=== PATIENT | female | born 1985 | race Asian ===

== ENCOUNTER 2018-05-05 05:27 | Inpatient (IN) | payer OTHER ==
[2018-05-05] VITALS (20 sets, daily range): BP systolic 107–144; BP diastolic 59–83; PULSE 68–86; TEMP 97.9–98.3
[~2018-05-05] VITALS: Ht 167.6 cm; Wt 82.7 kg
[~2018-05-05 05:27] MED LIST: MOTRIN 600600 MG/TAB PO; PERCOCET 325 MG1 TA2 PO; PRENATAL
[2018-05-05 06:12] LABS: BASO % 0.3 % (0.0-2.0); EOS # 0.1 (0.0-0.7); EOS % 0.7 % (0-4.0); GRAN # 4.5 (1.4-6.5); GRAN % 62.3 % (42.2-75.2); LYMPH % 28.3 % (20.0-51.0); MEAN CELL VOLUME 78 fl (80.0-100.0); MEAN CORPUSCULAR HGB CONC 31 g/dl (33.0-37.0); MEAN PLATELET VOLUME 11.6 fl (7.4-10.4); MONO # 0.6 (0.1-0.6); MONO % 7.8 % (1.7-9.3); PLATELET COUNT 244 K/mm3 (130-400); RED BLOOD COUNT 4.08 M/mm3 (4.10-5.30)
[2018-05-05 06:13] LABS: HEMATOCRIT 31.9 % (37.0-47.0); HEMOGLOBIN 9.9 g/dl (12.5-16.0); MEAN CORPUSCULAR HEMOGLOBIN 24 pg (27.0-31.0)
[2018-05-05] MEDS ORDERED: MOTRIN 600600 MG/TAB PO (14:19)
[2018-05-06 04:35] VITALS: BP 117/61; PULSE 88
[2018-05-06 07:00] VITALS: BP 115/70; PULSE 86; TEMP 98.2
[2018-05-06 08:06] LABS: HEMATOCRIT 29.6 % (37.0-47.0); HEMOGLOBIN 9.3 g/dl (12.5-16.0)
[2018-05-06 16:30] VITALS: BP 115/64; PULSE 68
[2018-05-06 19:28] VITALS: BP 125/65; PULSE 84; TEMP 98.4
[2018-05-07 07:00] VITALS: BP 135/83; PULSE 95
[2018-05-07] MEDS ORDERED: MOTRIN 600600 MG/TAB PO (10:02)
[2018-05-07] MEDS ORDERED: PERCOCET 325 MG1 TA2 PO (10:03)
== END 2018-05-07 12:30 | disposition home or self-care (01) | DRG 766 ==
LOC: OB 05:27 → LDR 07:12 → OB 05-07 12:30
PROVIDERS: Obstetrics & Gynecology
PROC: 10D00Z1 Extraction of Products of Conception, Low, Open Approach (ICD-10-PCS; principal; 2018-05-05)
DX: O34.211 Maternal care for low transverse scar from previous cesarean delivery (principal); Z3A.39 39 weeks gestation of pregnancy; Z37.0 Single live birth; O99.02 Anemia complicating childbirth
CPT/HCPCS: J0690; J1885; J2270; J2370; J2405; J2590; J7120